=== PATIENT | female | born 1995 | race Caucasian/White ===

== ENCOUNTER 2025-03-24 10:49 | Emergency (ER) | payer OTHER ==
[~2025-03-24] VITALS: Ht 144.8 cm; Wt 81.8 kg
[~2025-03-24 10:49] MED LIST: PREN-155 PO
[2025-03-24 10:54] VITALS: TEMP 98.1
[2025-03-24] MEDS: LIDOCAINE 5% TRANSDERMAL PATCH TD ONE (11:42)
[2025-03-24] MEDS: KETOROLAC TROMETHAMINE 30 MG/ML VIAL IM ONE (11:43)
[2025-03-24] MEDS: methocarbamoL 500 MG TABLET PO ONE (11:43)
[2025-03-24] MEDS ORDERED: METH-659 PO (12:43)
[2025-03-24] MEDS ORDERED: IBUP-1492 PO (12:43)
[2025-03-24 13:10] VITALS: BP 122/81; PULSE 55; RESP 16; O2SAT 100
== END 2025-03-24 13:10 | disposition home or self-care (01) ==
LOC: EMS 10:50
DX: S16.1XXA Strain of muscle, fascia and tendon at neck level, initial encounter (principal); M79.18 Myalgia, other site; M25.512 Pain in left shoulder; M79.652 Pain in left thigh; M54.59 Other low back pain; Z79.899 Other long term (current) drug therapy; V43.52XA Car driver injured in collision with other type car in traffic accident, initial encounter; Y93.89 Activity, other specified; Y92.410 Unspecified street and highway as the place of occurrence of the external cause; Y99.8 Other external cause status
CPT/HCPCS: 99285; 70450; 72125; 96372; J1885